=== PATIENT | female | born 1965 | race Caucasian/White ===

== ENCOUNTER → 2017-02-21 | Outpatient (CLI) | payer BC ==
[2016-04-13 18:34] VITALS: BP 159/69
[~2017-02-21] MED LIST: ALBU8.5H8 INH; AMLO2.5T PO; ASPI-630 PO; CARI350T PO; GUAI600T47 PO; IVAB7.5T PO; RANI300C PO; TIOT18CA IH
--- NOTE | 2017-02-21 11:37 | RAD ---
Bone densitometry scan, 02/21/2017: History: Postmenopausal osteoporosis The lumbar spine and right hip were examined utilizing a DEXA technique. The bone mineral density in the lumbar spine as measured from the L1-L4 levels is 0.99 g/sq cm. This yields a T score of -1.5 compatible with osteopenia. The same T score of -1.5 was obtained on the previous exam from 10/26/2014. The total T score at the right hip is -2.8, compatible with osteoporosis. The right hip T score on the previous exam was -2.6. IMPRESSION: 1. Stable osteopenia in the lumbar spine. 2. Osteoporosis at the right hip, slightly worse than on the 10/26/2014 study.
--- NOTE | 2017-02-22 15:36 | RAD ---
DATE: 02/21/2017 EXAM: MAMMO SCREENING BILATERAL HISTORY: Routine screening COMPARISON: 10/26/2014 This study was interpreted with the benefit of Computerized Aided Detection (CAD). FINDINGS: Breast Density: DENSE The breast Parenchyma is dense, which could reduce the sensitivity of mammography. Breast parenchyma level density D.. Faint calcifications identified in the left inner breast best seen on the cc view. Benign-appearing calcifications identified in the right breast. IMPRESSION: Faint calcifications identified in the left inner breast best seen on cc view. Recommend spot compression magnification view of the left breast.. A ML view is recommended. BI-RADS CATEGORY: 0 INCOMPLETE: NEEDS ADDITIONAL IMAGING EVALUATION AND/OR PRIOR MAMMOGRAMS FOR COMPARISON. RECOMMENDED FOLLOW-UP: ADD ADDITIONAL IMAGING PQRS compliance statement: Patient information was entered into a reminder system with a target due date immediate recall for the next mammogram. Mammography is a sensitive method for finding small breast cancers, but it does not detect them all and is not a substitute for careful clinical examination. A negative mammogram does not negate a clinically suspicious finding and should not result in delay in biopsying a clinically suspicious abnormality. "Our facility is accredited by the [employer] Mammography Program."
== END | disposition home or self-care (01) ==
LOC: DXRAD 09:39
PROVIDERS: ATTEND Physician Assistant Medical
DX: Z12.31 Encounter for screening mammogram for malignant neoplasm of breast (principal); Z00.01 Encounter for general adult medical examination with abnormal findings; M81.0 Age-related osteoporosis without current pathological fracture; M85.88 Other specified disorders of bone density and structure, other site; R92.1 Mammographic calcification found on diagnostic imaging of breast
CPT/HCPCS: 77063; 77080; G0202; 77067

== ENCOUNTER → 2017-03-06 | Outpatient (CLI) | payer BC ==
[2016-04-13 18:34] VITALS: BP 159/69
--- NOTE | 2017-03-06 11:35 | RAD ---
EXAM: DIGITAL DIAGNOSTIC LT. HISTORY: Abnormal screening mammogram, further evaluation. COMPARISON: Screening mammogram 02/21/2017. FINDINGS: Digital mammography was performed. Computer-aided detection (CAD) was utilized. True lateral view of the left breast was obtained as well as 2 magnification views of the medial left breast in the CC projection. Magnification views demonstrate no persistent suspicious abnormality. The apparent abnormality on previous study may have represented dermal material or contamination. No abnormality is identified on the true lateral view. IMPRESSION: No persistent mammographic abnormality. Recommend return to annual screening. BI-RADS CATEGORY: 1 NEGATIVE RECOMMENDED FOLLOW-UP: 12M 12 MONTH FOLLOW-UP PQRS compliance statement: Patient information was entered into a reminder system with a target due date for the next mammogram. Mammography is a sensitive method for finding small breast cancers, but it does not detect them all and is not a substitute for careful clinical examination. A negative mammogram does not negate a clinically suspicious finding and should not result in delay in biopsying a clinically suspicious abnormality. "Our facility is accredited by the [employer] Mammography Program."
== END | disposition home or self-care (01) ==
LOC: MAMMO 10:47
PROVIDERS: ATTEND Physician Assistant Medical
DX: R92.8 Other abnormal and inconclusive findings on diagnostic imaging of breast (principal)
CPT/HCPCS: G0206; 77065

== ENCOUNTER → 2018-01-13 | Outpatient (CLI) | payer BC ==
[2016-04-13 18:34] VITALS: BP 159/69
[2018-01-13 13:31] LABS: ALBUMIN 3.6 g/dL (3.4-5.0); ALBUMIN/GLOBULIN RATIO 1.1 (1.0-1.7); CALCIUM 8.8 mg/dL (8.5-10.1); CREATININE 0.9 mg/dL (0.6-1.0); GFR 65.8; TOTAL BILIRUBIN 0.3 mg/dL (0.2-1.0); TOTAL PROTEIN 6.9 g/dL (6.4-8.2)
== END | disposition home or self-care (01) ==
LOC: LAB 12:34
PROVIDERS: ATTEND Nurse Practitioner
DX: R09.89 Other specified symptoms and signs involving the circulatory and respiratory systems (principal); J44.9 Chronic obstructive pulmonary disease, unspecified; E78.00 Pure hypercholesterolemia, unspecified; Z87.891 Personal history of nicotine dependence
CPT/HCPCS: 36415; 80053; 80061

== ENCOUNTER → 2018-01-16 | Outpatient (CLI) | payer BC ==
[2016-04-13 18:34] VITALS: BP 159/69
--- NOTE | 2018-01-16 14:09 | RAD ---
Exam : Carotid Duplex with Grayscale Ultrasound and Spectral and Color Doppler Analysis: Clinical Indications: Left carotid bruit Comparison study: None available. PQRS Compliance Statement - Stenosis calculations for CT, MR and conventional angiography are based upon measurement of the distal ICA diameter in accordance with the NASCET methodology. Stenosis calculations for carotid ultrasound studies are derived from validated velocity criteria which are known to correlate with the NASCET methodology. Findings: The common, internal and external carotid arteries were examined by grayscale, color and spectral Doppler ultrasound. Mild atherosclerotic vascular disease noted most prominently in the carotid bulbs. Elevated velocities are seen in the distal right ICA measuring 125.4 cm/s with an end-diastolic velocity of 49 1 cm/s. Flow in the bilateral vertebral arteries is antegrade. RIGHT ICA PV: 125cm/sec RIGHT CCA PV: 77cm/sec RIGHT ICA ED: 49cm/sec RIGHT IC/CCPV: 1.6 RIGHT VERTEBRAL: antegrade flow LEFT ICA PV: 105cm/sec LEFT CCA PV: 91cm/sec LEFT ICA ED: 31cm/sec LEFT IC/CCPV: 1.2 LEFT VERTEBRAL: antegrade flow <50% ICA Stenosis: PSV < 125cm/s (EDV < 40cm/s; SVR < 2.0) 50-69% ICA Stenosis: PSV < 125-229cm/s (EDV 40-99cm/s; SVR 2.0-3.9) >70% ICA Stenosis: PSV > 230cm/s (EDV >100cm/s; SVR >4.0) Impression: Ultrasound velocity criteria and suggest a 50-69% stenosis in the distal right internal carotid artery. Less than 50% stenosis of the internal carotid artery on the left. Consider CTA for further characterization.
== END | disposition home or self-care (01) ==
LOC: US 12:43
PROVIDERS: ATTEND Nurse Practitioner
DX: I65.23 Occlusion and stenosis of bilateral carotid arteries (principal)
CPT/HCPCS: 93880

== ENCOUNTER → 2018-03-25 | Outpatient (CLI) | payer BC ==
[2016-04-13 18:34] VITALS: BP 159/69
--- NOTE | 2018-03-25 13:13 | RAD ---
DATE: 03/25/2018 EXAM: DIGITAL SCREEN BILAT W/CAD HISTORY: Routine screening COMPARISON: 03/06/2017, 02/21/2017 This study was interpreted with the benefit of Computerized Aided Detection (CAD). The breast parenchyma is dense, which could reduce the sensitivity of mammography. Breast parenchyma level density D. FINDINGS: No new or enlarging breast densities are seen. Benign type calcifications are present in both breasts. No suspicious microcalcifications have developed. IMPRESSION: Stable mammograms without evidence of malignancy. BI-RADS CATEGORY: 2 BENIGN FINDING(S) RECOMMENDED FOLLOW-UP: 12M 12 MONTH FOLLOW-UP PQRS compliance statement: Patient information was entered into a reminder system with a target due date for the next mammogram. Mammography is a sensitive method for finding small breast cancers, but it does not detect them all and is not a substitute for careful clinical examination. A negative mammogram does not negate a clinically suspicious finding and should not result in delay in biopsying a clinically suspicious abnormality. "Our facility is accredited by the [employer] Mammography Program."
--- NOTE | 2018-03-27 09:12 | RAD ---
Bone densitometry scan, 03/25/2018: History: Postmenopausal osteoporosis The lumbar spine and right hip were examined utilizing a DEXA technique. The bone mineral density in the lumbar spine as measured from the L1-L4 levels is 0.97 g/sq cm. This yields a T score of -1.7 compatible with osteopenia. On the previous study of 02/21/2017 the lumbar spine T score was -1.5 The total T score at the right hip is -2.7 compared to a measurement of 2.8 on the previous study. These measurements are in a range compatible with osteoporosis. IMPRESSION: 1. Slight interval worsening of the osteopenia in the lumbar spine. 2. Stable osteoporosis at the right hip.
== END | disposition home or self-care (01) ==
LOC: DXRAD 09:59
PROVIDERS: ATTEND Obstetrics & Gynecology
DX: Z12.31 Encounter for screening mammogram for malignant neoplasm of breast (principal); Z13.820 Encounter for screening for osteoporosis; M81.8 Other osteoporosis without current pathological fracture; M85.88 Other specified disorders of bone density and structure, other site; Z78.0 Asymptomatic menopausal state
CPT/HCPCS: 77067; 77080

== ENCOUNTER → 2018-07-22 | Outpatient (CLI) | payer BC ==
[2016-04-13 18:34] VITALS: BP 159/69
[~2018-07-22] MED LIST changes: -AMLO2.5T PO; +AMLO2.5T3 PO
[2018-07-22 11:38] LABS: ALBUMIN 3.7 g/dL (3.4-5.0); ALBUMIN/GLOBULIN RATIO 1.1 (1.0-1.7); CREATININE 0.9 mg/dL (0.6-1.0); GFR 65.5; POTASSIUM 4.5 mmol/L (3.5-5.1); TOTAL BILIRUBIN 0.4 mg/dL (0.2-1.0); TOTAL PROTEIN 7.1 g/dL (6.4-8.2)
== END | disposition home or self-care (01) ==
LOC: LAB 10:51
PROVIDERS: ATTEND Nurse Practitioner
DX: E78.49 Other hyperlipidemia (principal)
CPT/HCPCS: 36415; 80053; 80061

== ENCOUNTER → 2019-07-14 | Outpatient (CLI) | payer BC ==
[2016-04-13 18:34] VITALS: BP 159/69
[~2019-07-14] MED LIST changes: +ALBU2.5V8 INH; -ALBU8.5H8 INH; -AMLO2.5T3 PO; +AMLO2.5T5 PO
[2019-07-14 13:44] LABS: ALBUMIN 3.7 g/dL (3.4-5.0); ALBUMIN/GLOBULIN RATIO 1.1 (1.0-1.7); CALCIUM 9.1 mg/dL (8.5-10.1); GFR 57.8; POTASSIUM 4.1 mmol/L (3.5-5.1); TOTAL BILIRUBIN 0.4 mg/dL (0.2-1.0); TOTAL PROTEIN 7.1 g/dL (6.4-8.2)
== END | disposition home or self-care (01) ==
LOC: LAB 13:09
PROVIDERS: ATTEND Nurse Practitioner
DX: E78.49 Other hyperlipidemia (principal); G43.909 Migraine, unspecified, not intractable, without status migrainosus
CPT/HCPCS: 36415; 80053; 80061

== ENCOUNTER → 2019-08-25 | Outpatient (CLI) | payer BC ==
[2016-04-13 18:34] VITALS: BP 159/69
[~2019-08-25] MED LIST changes: +IOHEXOL 300 MG/ML 75 ML VIAL. IV ONE
--- NOTE | 2019-08-25 17:02 | RAD ---
EXAM: CT OF THE CHEST WITH CONTRAST. HISTORY: Shortness of breath, pulmonary hypertension, chronic obstructive pulmonary disease. TECHNIQUE: Computed tomography of the chest was performed after the intravenous administration of iodinated contrast. COMPARISON: None. FINDINGS: Images of the upper abdomen reveal no acute abnormality. Bone windows reveal no suspicious lesions. There are no pathologically enlarged mediastinal or axillary lymph nodes. Prominent hilar nodes measure up to 10 x 6 mm. There is no pleural or pericardial effusion. The heart is not enlarged. The main pulmonary artery is not enlarged at 19 mm. There is moderate centrilobular emphysema. There is a 2 mm nodule in the right lower lobe on image 65. A groundglass nodule in the left upper lobe measures 4 mm on image 20. Linear opacities in the bases are consistent with atelectasis or scarring. IMPRESSION: 1. Moderate centrilobular emphysema. Bibasilar atelectasis or scarring. 2. A tiny nodule in the right lower lobe measures only 2 mm and is likely benign at this small size. Follow-up could be considered in one year if there is persistent concern. *One or more of the following individualized dose reduction techniques were utilized for this examination: 1. Automated exposure control. 2. Adjustment of the mA and/or kV according to patient size. 3. Use of iterative reconstruction technique. Electronically signed by: Carlos Lehman MD (08/25/2019 4:59 PM) [facility]
== END | disposition home or self-care (01) ==
LOC: CT 09:56
PROVIDERS: ATTEND Nurse Practitioner
DX: J43.2 Centrilobular emphysema (principal); R91.8 Other nonspecific abnormal finding of lung field; J98.4 Other disorders of lung; I27.20 Pulmonary hypertension, unspecified
CPT/HCPCS: 71260; Q9967

== ENCOUNTER → 2019-09-17 | Outpatient (CLI) | payer BC ==
[2016-04-13 18:34] VITALS: BP 159/69
[~2019-09-17] MED LIST changes: -IOHEXOL 300 MG/ML 75 ML VIAL. IV ONE
--- NOTE | 2019-09-18 17:50 | RAD ---
Two-view right hand HISTORY: Right hand pain. FINDINGS: No evidence of acute fracture. No bone destruction or bone erosion. Joint spaces and alignment are intact. No significant soft tissue abnormality. IMPRESSION: No acute radiographic findings. Electronically signed by: Garland Prado MD (09/18/2019 5:47 PM) [facility]
== END | disposition home or self-care (01) ==
LOC: DXRAD 14:32
PROVIDERS: ATTEND Registered Nurse
DX: M79.644 Pain in right finger(s) (principal)
CPT/HCPCS: 73120

== ENCOUNTER → 2020-09-05 | Outpatient (CLI) | payer BC, OTHER ==
[2016-04-13 18:34] VITALS: BP 159/69
--- NOTE | 2020-09-05 17:46 | RAD ---
STUDY: CT chest without contrast INDICATION: Lung nodule follow-up. COMPARISON: 08/25/2019 TECHNIQUE: Helical CT imaging of the chest performed without the use of intravenous contrast. Sagittal and coronal reformats were obtained. One or more of the following individualized dose reduction techniques were utilized for this examination: 1. Automated exposure control 2. Adjustment of the mA and/or kV according to patient size 3. Use of iterative reconstruction technique. FINDINGS: Vasculature: Multifocal calcific atherosclerosis to include coronary artery involvement. No apparent change in aortic caliber. Mitral annular mineralization. Mediastinum/gabbi: Noting the absence of intravenous contrast, no pathologically enlarged mediastinal or hilar lymph node. Subcentimeter lymph nodes have not significant changed in the interim. Lungs: Several subsolid, poorly marginated nodular foci mainly at the upper lung zones on the right more so than left are more conspicuous on this exam obtained with 1 mm slices. When comparing 3 mm images from today with 08/25/2019, none of these foci have appreciably changed. No suspicious nodule based on size and imaging features has developed in the interim. Centrilobular emphysematous changes and scattered scarring/atelectasis. No pleural effusion or pneumothorax. Neck/axilla/chest wall: Unchanged lower neck and axilla. Bones: No significant interval change to include scattered degenerative findings such as at the C6-C7 disc space. Upper abdomen: Unchanged. IMPRESSION: 1. Scattered pulmonary nodules on the right more so than left measuring 4 mm or less. A few are solid while the majority are subsolid. No nodule has appreciably changed in size since 08/25/2019 and no new nodule is seen throughout either lung. Lung-RADS score of 2 - annual low-dose CT is recommended. 2. Centrilobular emphysema, multifocal calcific atherosclerosis and additional chronic findings are redemonstrated. Electronically signed by: PAULA BROOKS MD (09/05/2020 5:43 PM) [id number]
== END ==
LOC: CT 12:46
PROVIDERS: ATTEND Internal Medicine Critical Care Medicine
DX: J43.2 Centrilobular emphysema (principal); R91.8 Other nonspecific abnormal finding of lung field; I25.10 Atherosclerotic heart disease of native coronary artery without angina pectoris
CPT/HCPCS: 71250

== ENCOUNTER → 2020-12-13 | Outpatient (CLI) | payer OTHER ==
[2016-04-13 18:34] VITALS: BP 159/69
[2020-12-13 14:09] LABS: ALBUMIN 3.5 g/dL (3.4-5.0); CREATININE 0.9 mg/dL (0.6-1.0); POTASSIUM 4.3 mmol/L (3.5-5.1); TOTAL BILIRUBIN 0.2 mg/dL (0.2-1.0); TOTAL PROTEIN 6.9 g/dL (6.4-8.2)
== END ==
LOC: LAB 12:20
PROVIDERS: ATTEND Nurse Practitioner
DX: E78.5 Hyperlipidemia, unspecified (principal)
CPT/HCPCS: 36415; 80053; 80061

== ENCOUNTER → 2021-02-14 | Outpatient (CLI) | payer OTHER ==
[2016-04-13 18:34] VITALS: BP 159/69
--- NOTE | 2021-02-14 15:07 | RAD ---
EXAM: DUAL ENERGY X-RAY ABSORPTIOMETRY (DEXA). HISTORY: Postmenopausal screening. FINDINGS: The lowest measured T-score is -2.8 in the right hip, based on a bone mineral density of 0. 616 g/cm^2. Refer to the worksheets for full detail. There has been a 1.2 percent decrease in density of the right hip and 7.2 percent decrease in density of the lumbar spine compared to a study performed 02/21/2017. IMPRESSION: 1. Osteoporosis. Bone mineral density yields a T-score of -2.5 or less. Fracture risk is high. 2. FRAX report: Not calculated. METHODOLOGY: Dual energy x-ray absorptiometry was performed to measure bone mineral density. The foll owing analysis is based on the 2019 Official Positions of the International Society for Clinical Dens itometry: Measurements of the hips and the average of L1-L4 are preferred. When the spine and/or hip cannot be feasibly measured or interpreted, or in the setting of hyperparathyroidism, distal radial bone minera l density may be measured. The lumbar spine T-score is based on the average bone mineral density of L1-L4. In the setting of art ifact or anatomic abnormality, some lumbar levels may be excluded, and the remaining levels used for calculation. A single lumbar level is not used for diagnosis, and if only a single level is available for assessment, another anatomic site will be used to assign a diagnosis. The hip T-score is based on the bone mineral density measurement of the femoral neck or total proxima l femur of either side, whichever is lowest. Bilateral mean values are not used for diagnosis. The forearm T-score is derived from 33% of the distal radius of the nondominant forearm. Electronically signed by: Lexi Rajan MD (02/14/2021 3:05 PM) [facility]
--- NOTE | 2021-02-15 09:55 | RAD ---
DATE: February 14, 2021 EXAM: DIGITAL SCREEN BILAT W/CAD HISTORY: Screening study. COMPARISON: 2018 This study was interpreted with the benefit of Computerized Aided Detection (CAD). FINDINGS: Breast Density: HETERO The breast parenchyma is heterogenously dense, which could reduce sensitivity of mammography. Breast parenchyma level C.. There are no dominant suspicious masses, suspicious pleomorphic microcalcifications or evidence of architectural distortion. IMPRESSION: No mammographic indicators for malignancy. BI-RADS CATEGORY: 1 NEGATIVE RECOMMENDED FOLLOW-UP: 12M 12 MONTH FOLLOW-UP PQRS compliance statement: Patient information was entered into a reminder system with a target due date February 15, 2022 for the next mammogram. Mammography is a sensitive method for finding small breast cancers, but it does not detect them all and is not a substitute for careful clinical examination. A negative mammogram does not negate a clinically suspicious finding and should not result in delay in biopsying a clinically suspicious abnormality. "Our facility is accredited by the [employer] Mammography Program." The patient's breast density may affect the ability of mammography to detect breast cancer. There are 4 categories of breast density, A, B, C and D. Breast density A means that most of the breast tissue is replaced with adipose tissue and therefore is not dense. Breast density B means that the breast tissue is mildly dense and scattered. Breast density C means that the breast tissue is heterogeneously dense. Breast density D means that the breast tissue is very dense. Breast densities especially C and D may decrease the sensitivity of mammography to detect breast cancer. Therefore, the patient may benefit from 3-D breast mammography (3D breast tomography) as a part of their screening mammogram. Insurance may or may not pay for this additional imaging. The patient's breast density based on today's mammogram is category C.
== END ==
LOC: DXRAD 13:19
PROVIDERS: ATTEND Obstetrics & Gynecology
DX: Z12.31 Encounter for screening mammogram for malignant neoplasm of breast (principal); M81.8 Other osteoporosis without current pathological fracture
CPT/HCPCS: 77067; 77080

== ENCOUNTER → 2021-12-20 | Outpatient (CLI) | payer OTHER ==
[2016-04-13 18:34] VITALS: BP 159/69
[2021-12-20 14:43] LABS: ALBUMIN 3.9 g/dL (3.4-5.0); ALBUMIN/GLOBULIN RATIO 1.4 (1.0-1.7); CALCIUM 8.8 mg/dL (8.5-10.1); CREATININE 0.8 mg/dL (0.6-1.0); GFR 74.2; TOTAL BILIRUBIN 0.3 mg/dL (0.2-1.0); TOTAL PROTEIN 6.7 g/dL (6.4-8.2)
[2021-12-21 15:37] LABS: CHOLESTEROL/HDL RATIO 2.1
== END ==
LOC: LAB 13:18
PROVIDERS: ATTEND Nurse Practitioner
DX: E78.5 Hyperlipidemia, unspecified (principal)
CPT/HCPCS: 36415; 80053; 80061